=== PATIENT | male | born 1945 | race Caucasian/White ===

== ENCOUNTER 2020-12-22 07:46 | Inpatient (IN) | payer MEDICARE ==
--- NOTE | 2020-12-22 07:53 | EDM.PDOC ---
ED HPI GENERAL MEDICAL PROBLEM - General Chief Complaint: Lower Extremity Injury/Pain Stated Complaint: right hip pain Time Seen by Provider: 12/22/20 07:46 Source of Information: Reports: Patient History Limitations: Reports: Altered Mental Status - History of Present Illness INITIAL COMMENTS - FREE TEXT/NARRATIVE: Patient comes in the emergency department with EMS with complaint of right hip pain. Patient had fallen 2 different times within the last 24 hours. The first fall ended up having the patient be seen in the clinic with stitches. The second time the patient had fallen and just had an assessment completed by snf staff and was able to continue on with his activities of daily living. Nursing staff tried to get the patient up this morning and the patient was complaining of more right hip pain. They also state that he was more fatigued and tired this morning than he normally is. It does appear that he did receive his morning medications and unknown if he was more alert prior to receiving his medications. Patient is able to answer questions very slowly and has equal grasp prior to the emergency department however he continues to complain of right hip pain. Patient was able to ambulate on that right hip after his fall. Onset: Sudden Quality: Reports: Other Severity: Moderate Improves with: Reports: Rest Worsens with: Reports: Movement Context: Reports: Activity Associated Symptoms: Reports: No Other Symptoms - Related Data Allergies Allergy/AdvReac Type Severity Reaction Status Date / Time No Known Allergies Allergy Verified 12/22/20 08:10 Home Meds: Home Meds Acetaminophen [Pain Relief] 650 mg PO TID 12/22/20 [History] Bisacodyl [Gentle Laxative] 10 mg RC DAILY PRN 12/22/20 [History] Carbidopa/Levodopa [Sinemet 25-100 mg Tablet] 1 each PO TID 12/22/20 [History] Cyanocobalamin (Vitamin B12) [Vitamin B12] 1,000 mcg PO DAILY 12/22/20 [History] Docusate Sodium 100 mg PO BID PRN 12/22/20 [History] Donepezil [Aricept] 5 mg PO BEDTIME 12/22/20 [History] Folic Acid 1 mg PO DAILY 12/22/20 [History] Gabapentin [Neurontin] 300 mg PO DAILY 12/22/20 [History] Glycopyrrolate 1 mg PO BID 12/22/20 [History] LORazepam [Ativan] 0.5 mg PO DAILY 12/22/20 [History] Melatonin 3 mg PO BEDTIME PRN 12/22/20 [History] Saliva Substitute Combo No.9 [Biotene] 1,000 ml MM Q2H PRN 12/22/20 [History] Sertraline HCl 100 mg PO DAILY 12/22/20 [History] Tamsulosin HCl 0.4 mg PO DAILY 12/22/20 [History] polyethylene glycoL 3350 [MiraLAX] 17 gm PO DAILY PRN 12/22/20 [History] risperiDONE [Risperdal] 1 mg PO DAILY 12/22/20 [History] ED ROS GENERAL - Review of Systems Review Of Systems: Comprehensive ROS is negative, except as noted in HPI. Constitutional: Reports: No Symptoms HEENT: Reports: No Symptoms Respiratory: Reports: No Symptoms Cardiovascular: Reports: No Symptoms Endocrine: Reports: No Symptoms GI/Abdominal: Reports: No Symptoms : Reports: No Symptoms Musculoskeletal: Reports: No Symptoms, Hand Pain Skin: Reports: No Symptoms Neurological: Reports: No Symptoms Psychiatric: Reports: No Symptoms Hematologic/Lymphatic: Reports: No Symptoms Immunologic: Reports: No Symptoms ED EXAM, GENERAL - Physical Exam Exam: See Below Exam Limited By: No Limitations General Appearance: Alert, WD/WN, No Apparent Distress Head: Atraumatic, Normocephalic Neck: Normal Inspection, Supple, Non-Tender, Full Range of Motion Respiratory/Chest: No Respiratory Distress, Lungs Clear, Normal Breath Sounds, No Accessory Muscle Use, Chest Non-Tender Cardiovascular: Normal Peripheral Pulses, Regular Rate, Rhythm, No Edema GI/Abdominal: Normal Bowel Sounds, Soft, Non-Tender Back Exam: Normal Inspection, Full Range of Motion Extremities: Normal Inspection, Normal Range of Motion, Non-Tender, Normal Capillary Refill Neurological: Disoriented, Slow to Respond Psychiatric: Normal Affect, Normal Mood Skin Exam: Warm, Dry, Intact, Normal Color Course - Vital Signs Last Recorded V/S: Last Vital Signs Temp 36.7 C 12/22/20 07:48 Pulse 59 L 12/22/20 07:48 Resp 20 12/22/20 07:48 BP 140/78 12/22/20 07:48 Pulse Ox 98 12/22/20 07:48 - Orders/Labs/Meds Orders: Active Orders 24 hr Category Date Time Status Admission Status [Patient Status] [ADT] Routine ADT 12/22/20 08:59 Ordered Chest 1V Frontal [CR] Stat Exams 12/22/20 08:51 Ordered Head wo Cont [CT] Stat Exams 12/22/20 07:48 Taken Pelvis 1V or 2V [CR] Stat Exams 12/22/20 07:48 Taken CULTURE BLOOD [BC] Stat Lab 12/22/20 08:50 Ordered CULTURE BLOOD [BC] Stat Lab 12/22/20 08:50 Ordered UA RFX MARLIN AND CULT IF INDIC [URIN] Stat Lab 12/22/20 08:51 Ordered Blood Culture x2 Reflex Set [OM.PC] Stat Oth 12/22/20 08:50 Ordered Labs: Laboratory Tests 12/22/20 12/22/20 12/22/20 Range/Units 08:13 08:13 08:13 WBC 18.8 H (4.0-10.0) x10^3/uL RBC 3.09 L (4.5-6.0) x10^6/uL Hgb 10.2 L (14.0-18.0) g/dL Hct 30.9 L (40.0-52.0) % MCV 100.0 H (78.0-93.0) fL MCH 33.0 H (26.0-32.0) pg MCHC 33.0 (32.0-36.0) g/dL RDW Coeff of Eugenio 14.2 (10.0-15.0) % Plt Count 152 (130-400) x10^3/uL Add Manual Diff Yes Neutrophils % (Manual) 12 L (50-80) % Lymphocytes % (Manual) 83 H (25-50) % Monocytes % (Manual) 3 (2-11) % Eosinophils % (Manual) 1 (0-4) % Blast Cells % 1 H (0) % Absolute Neutrophils 2.3 (1.8-7.7) x10^3/uL Lymphocytes # (Manual) 15.6 H (1.0-4.8) x10^3/uL Monocytes # (Manual) 0.6 (0.0-0.8) x10^3/uL Eosinophils # (Manual) 0.2 (0.0-0.5) x10^3/uL Platelet Estimate Adequate Sodium 142 (136-145) mmol/L Potassium 4.0 (3.5-5.1) mmol/L Chloride 109 H (98-107) mmol/L Carbon Dioxide 30 (21-32) mmol/L Anion Gap 7.0 (5-15) mmol/L BUN 18 (7-18) mg/dL Creatinine 0.6 L (0.70-1.30) mg/dL Est Cr Clr Drug Dosing TNP Estimated GFR (MDRD) > 60 Glucose 86 (70-99) mg/dL Lactic Acid 0.9 (0.4-2.0) mmol/L Calcium 7.6 L (8.5-10.1) mg/dL Corrected Calcium 8.6 (8.5-10.1) mg/dL Total Bilirubin 0.4 (0.2-1.0) mg/dL AST 23 (15-37) U/L ALT 13 L (16-63) U/L Alkaline Phosphatase 108 (46-116) U/L C-Reactive Protein 6.2 H (<=0.9) mg/dL Total Protein 5.3 L (6.4-8.2) g/dL Albumin 2.8 L (3.4-5.0) g/dL Globulin 2.5 Albumin/Globulin Ratio 1.12 Meds: Medications Discontinued Medications Generic Name Dose Route Start Last Admin Trade Name Freq PRN Reason Stop Dose Admin Ceftriaxone Sodium 1 gm 12/22/20 08:50 Ceftriaxone 1 Gm Vial IVPUSH 12/22/20 08:51 ONETIME ONE Departure - Departure Time of Disposition: 09:05 Disposition: Admitted As Inpatient 67 Condition: Fair Clinical Impression: Lethargy Sepsis Qualifiers: Sepsis type: sepsis due to unspecified organism Sepsis acute organ dysfunction status: unspecified Qualified Code(s): A41.9 - Sepsis, unspecified organism - Discharge Information *PRESCRIPTION DRUG MONITORING PROGRAM REVIEWED*: Not Applicable *COPY OF PRESCRIPTION DRUG MONITORING REPORT IN PATIENT NEO: Not Applicable Forms: ED Department Discharge Sepsis Event Note (ED) - Focused Exam Vital Signs: Vital Signs Temp Pulse Resp BP Pulse Ox 12/22/20 07:48 36.7 C 59 L 20 140/78 98 - My Orders Last 24 Hours: My Active Orders 12/22/20 07:48 Head wo Cont [CT] Stat Pelvis 1V or 2V [CR] Stat 12/22/20 08:50 CULTURE BLOOD [BC] Stat CULTURE BLOOD [BC] Stat Blood Culture x2 Reflex Set [OM.PC] Stat 12/22/20 08:51 Chest 1V Frontal [CR] Stat UA RFX MARLIN AND CULT IF INDIC [URIN] Stat 12/22/20 08:59 Admission Status [Patient Status] [ADT] Routine - Assessment/Plan Last 24 Hours: My Active Orders 12/22/20 07:48 Head wo Cont [CT] Stat Pelvis 1V or 2V [CR] Stat 12/22/20 08:50 CULTURE BLOOD [BC] Stat CULTURE BLOOD [BC] Stat Blood Culture x2 Reflex Set [OM.PC] Stat 12/22/20 08:51 Chest 1V Frontal [CR] Stat UA RFX MARLIN AND CULT IF INDIC [URIN] Stat 12/22/20 08:59 Admission Status [Patient Status] [ADT] Routine Assessment:: 1. sepsis 2. fall 3. right hip pain 4. Elevated WBC 5. Lethargy Plan: 1. X-ray completed in the emergency department results reviewed with the patient 2. Ice Applied to the affected limb 3. CT scan of head completed due to snf report stating patients less responsiveness from baseline 4. Sepsis protocol initiated and followed 5. Labs completed in the ER. Results reviewed with the patient 6. Blood cultures completed 7. IV initiated in the emergency department 8. IV fluids provided 9. EKG completed in ER. 10. Rocephin 1gm given 11. Consultation completed withHilary Delarosa who will admit and assume care of the patient 12. Patient and nursing staff was updated regarding the plan of care 13. Patient and family are agreeable to the above plan of care 14. All questions and concerns were addressed with the patient and family prior to discharge
[2020-12-22 08:37] LABS: CHLORIDE,CL 109 mmol/L (98-107); SODIUM,NA 142 mmol/L (136-145)
[2020-12-22] MEDS ORDERED: cefTRIAXone 1 GM Vial IVPUSH ONE (08:50)
[2020-12-22] MEDS ORDERED: Sodium Chloride 0.9% 1,000 ML IV ONE (09:03)
[2020-12-22] MEDS ORDERED: Bisacodyl 10 MG Supp RECTAL PRN (10:38)
[2020-12-22] MEDS ORDERED: Docusate Sodium 100 MG Cap PO PRN (10:38)
[2020-12-22] MEDS ORDERED: Polyethylene Glycol 3350 Powder 17 GM Packet PO PRN (10:38)
[2020-12-22] MEDS ORDERED: SALIVA SUBSTITUTE PO PRN (10:38)
[2020-12-22] MEDS: Acetaminophen 325 MG Tab PO SCH ×2 (12:51→19:34)
--- NOTE | 2020-12-22 12:54 | HP ---
Admission history and physical to the acute care floor at [facility]. CHIEF COMPLAINT: Unresponsiveness. HISTORY OF PRESENT ILLNESS: 74-year-old male patient was brought to the emergency room at [facility] early this morning [facility] for [place]responsiveness. This is a change from his baseline. The patient is usually conversive, although confused secondary to his dementia. The patient had been seen by me on jail rounds 2 days ago and did not have any new focal neurological deficits at that time. However, early yesterday morning, the patient did sustain a fall causing a laceration to the right scalp and abrasions to the right arm. The patient has also been complaining of right shoulder pain as well as right hip pain. In the emergency room today, the patient was found to have leukocytosis with a WBC count of 18.8 with a left shift. The patient has had a low-grade fever of 99.5. He was bradycardic at 59. According to the ER provider, the patient was essentially unresponsive but stable. Further workup in the emergency room with imaging studies consisted of a chest x-ray, head CT, and pelvis x-ray. Radiology reports are pending at the time of this dictation. The patient was seen by me in the clinic yesterday for his scalp laceration. At that time, he was conversive and at his baseline. The upper portion of the scalp laceration was closed with Dermabond. The skin abrasions were covered with Telfa and Kerlix. The patient was then discharged from the clinic back to the jail in stable condition. PAST MEDICAL HISTORY: 1. 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 2. Chronic lymphocytic leukemia. 3. Severe depression with psychotic features. 4. Generalized anxiety disorder. 5. Idiopathic chronic gout of multiple sites without tophus. 6. Restless legs syndrome. 7. Hallucinations. 8. Slow transit constipation. 9. Catatonia. PAST SURGICAL HISTORY: Bilateral hip arthroplasties. FAMILY HISTORY: Noncontributory. SOCIAL HISTORY: The patient does not smoke cigarettes. The patient does not consume any alcohol. The patient is retired. The patient is . The patient wishes to be a code 1. The patient has guardianship through [facility]. ALLERGIES: No known allergies. MEDICATIONS: 1. Vitamin B12, 1000 mcg IM weekly x4 weeks. 2. Cyanocobalamin 2000 mcg daily, starting after injection as above. 3. Lorazepam 0.5 mg 1 tablet p.o. daily at bedtime. 4. Aricept 5 mg 1 tablet p.o. daily. 5. Gabapentin 300 mg 1 capsule p.o. daily at bedtime. 6. Folic acid 1 mg p.o. daily. 7. Risperdal 1 mg 1 tablet p.o. twice daily. 8. Sinemet 1 tablet p.o. 3 times daily. 9. Sertraline 100 mg 1 tablet p.o. daily. 10.Flomax 0.4 mg 1 capsule p.o. daily. 11.Acetaminophen 650 mg 3 times a day. 12.Biotene 1 spray every 2 hours as needed. 13.Colace 100 mg 1 tablet p.o. twice daily as needed. 14.Melatonin 1 tablet p.o. daily at bedtime. 15.MiraLAX 17 g p.o. daily as needed. 16.Glycopyrrolate 1 mg twice daily. LABORATORY STUDIES: 1. CBC: White blood cell count 18.8, hemoglobin 10.2, hematocrit 30.9, platelets 152,000, neutrophils 12%. 2. CMP: Sodium 142, potassium 4.0, chloride 109, CO2 of 30, anion gap 7.0, BUN 18, creatinine 0.6, GFR greater than 60, glucose 86, calcium 7.6, AST 23, ALT 13. 3. Ammonia 49. 4. CRP 6.2. 5. Lactic acid 0.9. 6. Phosphorus 2.9, magnesium 2.1. IMAGING STUDIES: 1. Head CT, results pending. 2. Chest x-ray, results pending. 3. Hip x-ray, right, results pending. REVIEW OF SYSTEMS: Unable to obtain due to dementia and lethargy. PHYSICAL EXAMINATION: Vital Signs: Height 5 feet 9 inches, weight 147.4 pounds, temperature 99.5, pulse 61, blood pressure 136/71, respiratory rate 17, oxygen saturation 98% on room air. General: The patient is lethargic, able to arouse with sternal rub. The patient does not appear to be in any acute distress. Respiratory: Lungs are decreased throughout. Cardiovascular: Regular rate and rhythm. No murmur. Abdomen: Soft, nontender. Bowel sounds are hypoactive x4. Extremities: No edema. Skin: The patient has a scalp laceration on the right posterior scalp. Multiple skin abrasions to both upper extremities. The patient has an abrasion to the central forehead, which looks old. Otherwise, skin is intact. Neurological: The patient is arousable to sternal rub. The patient does state he has right shoulder pain and right hip pain. Otherwise, he states he feels comfortable. ASSESSMENT: 1. Sepsis evidenced by leukocytosis and elevated temperature with unknown etiology. 2. Lethargy. 3. Parkinson disease. 4. 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 5. Major depressive disorder with psychotic feature. 6. Chronic lymphocytic leukemia. 7. RLS. 8. Hallucination. 9. Catatonia. PLAN: 74-year-old male patient was admitted to the acute care floor this morning with the above diagnoses. He is a resident from the local jail. residential records show the patient is a code 1. Will await imaging results before starting any antibiotics at this point. Blood cultures have been drawn. The patient was given Rocephin in the emergency room for sepsis. Continue home medications the same. PT/OT consult. Case management consult for discharge planning back to the jail. Activity as tolerated. No DVT prophylaxis due to recent head injury with scalp laceration. Recheck laboratory work tomorrow. We will check a procalcitonin and ammonia level today. The patient was seen and examined by me as an [facility] provider. TB: 12/22/2020 12:00:44 MODL: 12/22/2020 12:49:23 /[id number]
[2020-12-22] MEDS: Carbidopa/Levodopa 25-100 MG Tab PO SCH ×2 (13:21→21:43)
[2020-12-22] MEDS: Sodium Chloride 0.9% 1,000 ML IV SCH (16:14)
[2020-12-22] MEDS: Donepezil 5 MG Tab PO SCH (19:34)
[2020-12-22] MEDS ORDERED: Haloperidol Lactate 5 MG/ML SDV IV ONE ×2 (20:00→22:08)
[2020-12-23] MEDS: Sodium Chloride 0.9% 1,000 ML IV SCH ×2 (05:00→21:06)
[2020-12-23] MEDS: Carbidopa/Levodopa 25-100 MG Tab PO SCH ×3 (05:19→21:04)
[2020-12-23] MEDS ORDERED: Gabapentin 300 MG Cap PO SCH (08:00)
[2020-12-23] MEDS: risperiDONE 1 MG Tab PO SCH (08:01)
[2020-12-23] MEDS: Sertraline 100 MG Tab PO SCH (08:01)
[2020-12-23] MEDS: Folic Acid 1 MG Tab PO SCH (08:01)
[2020-12-23] MEDS: Tamsulosin 0.4 MG Cap.ER PO SCH (08:01)
[2020-12-23] MEDS: Acetaminophen 325 MG Tab PO SCH ×3 (08:02→20:17)
[2020-12-23] MEDS: Cyanocobalamin (Vitamin B12) 1,000 MCG Tab PO SCH (08:02)
[2020-12-23 08:14] LABS: CHLORIDE,CL 107 mmol/L (98-107); SODIUM,NA 139 mmol/L (136-145)
[2020-12-23 08:31] LABS: ANION GAP 8.7 mmol/L (5-15)
[2020-12-23] MEDS ORDERED: Haloperidol Lactate 5 MG/ML SDV IV PRN (09:01)
[2020-12-23] MEDS: Donepezil 5 MG Tab PO SCH (20:17)
[2020-12-24] MEDS: Carbidopa/Levodopa 25-100 MG Tab PO SCH (05:39)
[2020-12-24 06:50] LABS: CHLORIDE,CL 110 mmol/L (98-107); SODIUM,NA 142 mmol/L (136-145)
[2020-12-24 06:51] LABS: ANION GAP 8.7 mmol/L (5-15)
[2020-12-24] MEDS: Tamsulosin 0.4 MG Cap.ER PO SCH (08:01)
[2020-12-24] MEDS: Cyanocobalamin (Vitamin B12) 1,000 MCG Tab PO SCH (08:01)
[2020-12-24] MEDS: Sertraline 100 MG Tab PO SCH (08:01)
[2020-12-24] MEDS: Acetaminophen 325 MG Tab PO SCH (08:02)
[2020-12-24] MEDS: Folic Acid 1 MG Tab PO SCH (08:02)
[2020-12-24] MEDS: risperiDONE 1 MG Tab PO SCH (08:02)
--- NOTE | 2020-12-24 10:41 | DISCH ---
Discharge summary from the acute care floor at [facility]. CHIEF COMPLAINT: Unresponsiveness. HISTORY OF PRESENT ILLNESS: A 75-year-old male patient was brought to the local emergency room 2 days ago from the retirement for unresponsiveness. The patient did have a fall in the retirement a couple of days ago and sustained a vertical laceration to the right posterior scalp and abrasions to the upper extremities. It was thought in the emergency room that patient was appearing to be septic, therefore, he was admitted acutely for further workup. Workup did not reveal any source of infection, therefore, antibiotics are being stopped today. The patient's MRSA screen was negative. Blood cultures so far have been negative. Patient has chronic leukocytosis secondary to CLL. BRIEF HOSPITAL COURSE: The patient remained hemodynamically stable and afebrile during his stay. The patient was started on vancomycin; however, this was stopped due to no source of infection. The patient was initially lethargic; however, he is now back at baseline. The patient is incontinent of bowel and bladder, which is also his baseline. The patient's laboratory work remained stable. The patient was started on IV fluids for hydration, this will also be stopped today prior to discharge to the retirement. CONSULTATIONS: 1. Physical Therapy. 2. Occupational Therapy. 3. Case Management. DIET: Regular, thin consistency. ACTIVITY: As tolerated. DISCHARGE LABORATORY WORK: Pending at the time of this dictation. DISCHARGE IMAGING STUDIES: 1. X-ray of right shoulder did not show any acute dislocation or fracture. 2. Head CT did not show any acute intracranial process. 3. Chest x-ray: No acute cardiopulmonary process. 4. Pelvic x-ray did not show any fracture or dislocation. The patient's previous arthroplasties are well-seated. ALLERGIES: No known drug allergies. DISCHARGE MEDICATIONS: 1. Acetaminophen 650 mg 1 tablet p.o. 3 times daily. 2. Dulcolax 10 mg rectal daily as needed. 3. Sinemet 1 tablet p.o. twice daily. 4. Cyanocobalamin 2000 mcg 1 tablet p.o. daily. 5. Colace 100 mg 1 tablet p.o. twice daily as needed. 6. Aricept 5 mg 1 tablet p.o. daily at bedtime. 7. Folic acid 1 mg 1 tablet p.o. daily. 8. Neurontin 300 mg 1 tablet p.o. daily at bedtime. 9. MiraLAX 17 g p.o. daily as needed. 10.Risperidone 1 mg 1 tablet p.o. daily. 11.Saliva substitute 1 drop every 2 hours as needed. 12.Zoloft 100 mg 1 tablet p.o. daily. 13.Tamsulosin 0.4 mg 1 tablet p.o. daily. REVIEW OF SYSTEMS: Unable to obtain due to severe dementia. DISCHARGE PHYSICAL EXAMINATION: Vital Signs: Temperature 98.7, pulse 58, blood pressure 144/77, respiratory rate 16, and oxygen saturation 95% on room air. Skin: The patient has a healing vertical scalp laceration, posterior right scalp, no wound dehiscence, area healing well. Patient has multiple abrasions to both upper extremities. Respiratory: Lungs are decreased but clear throughout. Cardiovascular: Regular rate and rhythm, no murmur. Abdomen: Soft, nontender. Bowel sounds are hypoactive x4. Extremities: No edema. Neurological: The patient is at baseline. The patient is alert but confused. No new focal neurological deficits. General: The patient is alert. The patient does not appear to be in any acute distress. ASSESSMENT: 1. Sepsis, ruled out. 2. Closed head injury with scalp laceration, status post fall at retirement. 3. Multiple skin abrasions, bilateral upper extremity. 4. Lethargy - resolved. 5. Parkinson disease. 6. 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 7. Major depressive disorder with psychotic features. 8. Chronic lymphocytic leukemia. 9. Restless legs syndrome. 10.Hallucination. 11.Catatonia. PLAN: A 75-year-old male patient was admitted to the acute care floor at [facility] for the above diagnoses. No source of sepsis was found, therefore, vancomycin was stopped and sepsis has been ruled out. The patient will continue on same medications at retirement. Patient will not be discharged on any antibiotics. Continue with same diet at retirement. The patient is a code 1. Discontinue Haldol and restart Ativan per previous orders at retirement. The patient will be discharged today. The patient was discharged in hemodynamically stable condition. The patient was seen and examined by me as an [facility] provider. TB: 12/24/2020 06:43:09 MODL: 12/24/2020 10:34:04 /[id number]
[2020-12-24] MEDS ORDERED: Gabapentin 300 MG Cap PO SCH (20:00)
--- NOTE | 2020-12-25 07:19 | PN ---
Progress Note for JUSTIN MEAD Date: 12/23/2020 Room #: VM.203 CHIEF COMPLAINT: Unresponsiveness. SUBJECTIVE: A 75-year-old male patient with past medical history of Parkinson's disease and dementia, was admitted to the acute care floor yesterday for possible sepsis and unresponsiveness. The patient was seen in the emergency room at [facility] prior to admission. The patient did have a head CT, which was negative. Chest x-ray unremarkable. The patient also had a pelvic x- ray, which was also unremarkable. Admitting labs did show leukocytosis; however, the patient does have CLL and has chronic leukocytosis secondary to this. The patient is a poor historian due to severe dementia. The patient is able to answer yes-no questions. He does deny any pain at this time. The patient states it is not difficult to breathe. No chest pain. The patient states his legs feel "jumpy." Rest of interview obtained from nursing staff. The patient has not had any fevers or chills. The patient is currently empirically on vancomycin for possible sepsis; however, source is unknown. REVIEW OF SYSTEMS: As above. PHYSICAL EXAMINATION: Vital Signs: Temperature 99.1, pulse 59, blood pressure 119/76, respiratory rate 22, and oxygen saturation 96% on room air. Skin: The patient has a vertical scalp laceration on the right posterior scalp, also multiple skin abrasions to both upper extremities, and otherwise skin is intact. Respiratory: Lungs are decreased throughout, otherwise clear. Cardiac: Regular rate and rhythm, no murmur. Abdomen: Soft, nontender. Bowel sounds are hypoactive x4. Extremities: No edema. Neurological: The patient is confused and intermittently agitated, which is his baseline. The patient is alert. No new focal neurological deficits. General: The patient does not appear to be in any acute distress. LABORATORY STUDIES: 1. CBC: White blood cell count 19.9, hemoglobin 10.3, hematocrit 30.7, and platelets 162,000. 2. BMP: Sodium 139, potassium 3.7, chloride 107, CO2 of 27, anion gap 8.7, BUN 11, creatinine 0.6, GFR greater than 60, glucose 85, and calcium 7.5. ASSESSMENT: 1. Sepsis, evidenced by leukocytosis and elevated temperature with unknown etiology. 2. Lethargy. 3. Parkinson disease. 4. 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 5. Major depressive disorder with psychotic features. 6. Chronic lymphocytic leukemia. 7. Restless legs syndrome. 8. Hallucination. 9. Catatonia. PLAN: A 75-year-old patient was admitted to the acute care floor yesterday for the above diagnosis. The patient was started on vancomycin empirically; however, source of infection is now unknown. Therefore, we will probably stop vancomycin after today's dose. Recheck laboratory work tomorrow morning. Continue with Haldol for agitation. We will restart Ativan at discharge to senior care. Continue all other cares the same. The patient is a code 1. This patient was seen and examined by me as an [facility] provider. TB: 12/24/2020 06:34:35 MODL: 12/24/2020 10:01:24 /[id number]
== END 2020-12-24 10:20 | DRG 884 ==
LOC: VM.ED 07:46 → VM.MS 08:59
PROVIDERS: ADMIT Nurse Practitioner Family; ATTEND Nurse Practitioner Family
DX: A41.9 Sepsis, unspecified organism (principal); R40.4 Transient alteration of awareness; M25.551 Pain in right hip; C91.90 Lymphoid leukemia, unspecified not having achieved remission; D72.829 Elevated white blood cell count, unspecified; F20.2 Catatonic schizophrenia; F02.81 Dementia in other diseases classified elsewhere, unspecified severity, with behavioral disturbance; R53.83 Other fatigue; G20 Parkinson's disease; S09.90XA Unspecified injury of head, initial encounter; W19.XXXA Unspecified fall, initial encounter; S40.812A Abrasion of left upper arm, initial encounter; F32.9 Major depressive disorder, single episode, unspecified; S40.811A Abrasion of right upper arm, initial encounter; S01.01XA Laceration without foreign body of scalp, initial encounter; Z20.822 Contact with and (suspected) exposure to COVID-19; G25.81 Restless legs syndrome; M10.9 Gout, unspecified; K59.01 Slow transit constipation; Z96.643 Presence of artificial hip joint, bilateral; Z79.899 Other long term (current) drug therapy; Y92.129 Unspecified place in nursing home as the place of occurrence of the external cause
CPT/HCPCS: 36415; 70450; 71045; 72170; 73030-RT; 80048; 80053; 81003; 82140; 83605; 83735; 84100; 84145; 85025; 86140; 87040; 93005; 96374; 99283; 99285-25; A9270-GY; J0696; J1630; J3370; J7030; J7050; U0002